=== PATIENT | male | born 1940 | race Caucasian/White ===

== ENCOUNTER → 2016-03-29 | Outpatient (CLI) | payer MEDICARE, BC ==
[~2016-03-29] MED LIST: ASPIR LOW81 MG PO; CITALOPRAM20 MG PO; LEVOTHYROXINE0.05 MG PO; MULTIPLE VITAMI1 CAP PO; TUSSIONEX PENNKI5 ML PO; VIBRAMYCIN100 MG PO; XANAX XR1 MG PO; [UNRECOGNIZED DRUG - CODE] PO
== END ==
LOC: RAD 09:08
DX: M25.511 Pain in right shoulder (principal)

== ENCOUNTER → 2016-04-12 | Outpatient (CLI) | payer MEDICARE, BC | LOC: RAD 08:51 | DX: M25.561 Pain in right knee (principal); M17.11 Unilateral primary osteoarthritis, right knee ==

== ENCOUNTER → 2016-05-24 | Outpatient (CLI) | payer MEDICARE, BC | LOC: LAB 09:48 | DX: R14.0 Abdominal distension (gaseous) (principal); Z11.59 Encounter for screening for other viral diseases; I10 Essential (primary) hypertension; F41.1 Generalized anxiety disorder ==

== ENCOUNTER → 2016-06-02 | Outpatient (CLI) | payer MEDICARE, BC | LOC: CARDREHAB 07:48 | DX: R06.09 Other forms of dyspnea (principal); I10 Essential (primary) hypertension; Z82.49 Family history of ischemic heart disease and other diseases of the circulatory system; Z87.891 Personal history of nicotine dependence; I20.8 Other forms of angina pectoris | CPT/HCPCS: A9500 ==

== ENCOUNTER → 2016-10-04 | Outpatient (CLI) | payer MEDICARE, BC ==
[2013-11-20 13:51] VITALS: BP 150/85
== END ==
LOC: LAB 07:52
DX: E03.9 Hypothyroidism, unspecified (principal); Z12.5 Encounter for screening for malignant neoplasm of prostate; K63.5 Polyp of colon; E78.5 Hyperlipidemia, unspecified; D41.4 Neoplasm of uncertain behavior of bladder

== ENCOUNTER → 2016-10-31 | Outpatient (CLI) | payer MEDICARE, BC ==
[2013-11-20 13:51] VITALS: BP 150/85
== END ==
LOC: LAB 11:10
DX: R19.5 Other fecal abnormalities (principal); Z23 Encounter for immunization

== ENCOUNTER 2017-01-31 09:00 | Outpatient (RCR) | payer MEDICARE, BC ==
[2013-11-20 13:51] VITALS: BP 150/85
== END 2017-01-31 09:30 | disposition home or self-care (01) ==
LOC: PT 09:00
DX: Z47.1 Aftercare following joint replacement surgery (principal); Z96.651 Presence of right artificial knee joint
CPT/HCPCS: G8978-GP; G8979-GP

== ENCOUNTER → 2017-03-23 | Outpatient (CLI) | payer MEDICARE, BC ==
[~2017-03-23] VITALS: Ht 190.5 cm; Wt 103.6 kg
[~2017-03-23] MED LIST changes: +CEFDINIR300 MG PO; +DICLOFENAC SODI PO; +KLONOPIN 1MG1 MG PO; +LEVOTHYROXIN0.075 MG PO; +PREDNISONE20 M1 PO; +XYZAL5 MG PO; +ZANTAC 7575 M1 PO
[2017-03-23 09:46] LABS: HEMATOCRIT 42.9 % (42.0-52.0); HEMOGLOBIN 14.3 g/dL (13.5-18.0); MEAN CELL VOLUME 95 fl (78-100); MEAN CORPUSCULAR HEMOGLOBIN 32 pg (27-31); MEAN CORPUSCULAR HGB CONC 33 g/dL (33-37); MEAN PLATELET VOLUME 10.2 fl (7.4-10.4); PLATELET COUNT 212 K/mm3 (130-400); RED CELL DISTRIBUTION WIDTH 12.9 % (11.5-14.5); WHITE BLOOD COUNT 10.2 K/mm3 (4.8-10.8)
[2017-03-23 09:56] LABS: ALBUMIN 4.5 g/dL (3.5-5.0); BUN/CREATININE RATIO 25.1 (6.0-26.0); CALCIUM 9.4 mg/dL (8.4-10.2); POTASSIUM 4.6 mmol/L (3.6-5.0); TOTAL BILIRUBIN 0.8 mg/dL (0.2-1.3); TOTAL PROTEIN 8.2 g/dL (6.3-8.2)
[2017-03-23 10:13] LABS: PROTHROMBIN TIME 9.9 SECONDS (9.0-12.0)
[2017-03-23 10:14] LABS: URINE APPEARANCE CLEAR; URINE BILIRUBIN NEGATIVE (NEGATIVE); URINE BLOOD NEGATIVE (NEGATIVE); URINE COLOR YELLOW; URINE GLUCOSE NEGATIVE (NEGATIVE); URINE KETONE NEGATIVE (NEGATIVE); URINE LEUKOCYTE ESTERASE NEGATIVE (NEGATIVE); URINE NITRATE NEGATIVE (NEGATIVE); URINE PROTEIN(semi-quant) TRACE mg/dL (NEGATIVE); URINE UROBILINOGEN NORMAL (NORMAL)
[2017-03-23 10:15] LABS: URINE MUCUS PRESENT (NOT PRESENT)
[2017-03-23 10:17] VITALS: BP 147/90
[2017-03-23 10:37] LABS: BAND 3 % (0-10); LYMPHOCYTE 14 % (20-51); MONOCYTE 4 % (3-10); NEUTROPHILS 79 % (42-75)
== END ==
LOC: AMSURD 09:12 → RAD 09:12 → LAB 09:12
PROVIDERS: Nurse Practitioner Family
DX: Z01.812 Encounter for preprocedural laboratory examination (principal); Z01.818 Encounter for other preprocedural examination; M17.11 Unilateral primary osteoarthritis, right knee

== ENCOUNTER → 2017-03-29 | Outpatient (CLI) | payer MEDICARE, BC ==
[2017-03-23 10:17] VITALS: BP 147/90
== END ==
LOC: PT 12:51
DX: Z01.818 Encounter for other preprocedural examination (principal)

== ENCOUNTER 2017-06-04 09:00 | Outpatient (RCR) | payer MEDICARE, BC ==
[2017-03-23 10:17] VITALS: BP 147/90
== END 2017-06-04 09:30 | disposition home or self-care (01) ==
LOC: PT 09:00
DX: Z47.1 Aftercare following joint replacement surgery (principal); Z96.651 Presence of right artificial knee joint
CPT/HCPCS: G8978-GP; G8979-GP

== ENCOUNTER → 2017-10-10 | Outpatient (CLI) | payer MEDICARE, BC ==
[2017-03-23 10:17] VITALS: BP 147/90
[2017-10-10 08:10] LABS: EOS # 0.5 (0.04-0.40); HEMATOCRIT 43.9 % (42.0-52.0); HEMOGLOBIN 14.8 g/dL (13.5-18.0); LYMPH# 2.5 (1.50-4.00); MEAN CELL VOLUME 95 fl (78-100); MEAN CORPUSCULAR HEMOGLOBIN 32 pg (27-31); MEAN CORPUSCULAR HGB CONC 34 g/dL (33-37); MEAN PLATELET VOLUME 10.6 fl (7.4-10.4); MONO # 0.5 (0.20-0.80); NEU # 3.2 (1.40-6.50); PLATELET COUNT 204 K/mm3 (130-400); RED BLOOD COUNT 4.63 M/mm3 (4.20-5.60); WHITE BLOOD COUNT 6.7 K/mm3 (4.8-10.8)
[2017-10-10 08:16] LABS: ALBUMIN 4.4 g/dL (3.5-5.0); BUN/CREATININE RATIO 22.1 (6.0-26.0); CALCIUM 9.1 mg/dL (8.4-10.2); POTASSIUM 4.3 mmol/L (3.6-5.0); TOTAL BILIRUBIN 1.2 mg/dL (0.2-1.3); TOTAL PROTEIN 7.9 g/dL (6.3-8.2)
[2017-10-10 08:31] LABS: EOS % 7.1 % (0.0-4.0)
[2017-10-11 09:35] LABS: URINE APPEARANCE CLEAR; URINE BILIRUBIN NEGATIVE (NEGATIVE); URINE BLOOD NEGATIVE (NEGATIVE); URINE COLOR YELLOW; URINE GLUCOSE NEGATIVE (NEGATIVE); URINE KETONE NEGATIVE (NEGATIVE); URINE LEUKOCYTE ESTERASE NEGATIVE (NEGATIVE); URINE NITRATE NEGATIVE (NEGATIVE); URINE PROTEIN(semi-quant) TRACE mg/dL (NEGATIVE); URINE UROBILINOGEN NORMAL (NORMAL); URINE WBC 0-1 /hpf (0-3)
== END ==
LOC: LAB 07:22
PROVIDERS: Nurse Practitioner Family
DX: Z00.00 Encounter for general adult medical examination without abnormal findings (principal); Z12.5 Encounter for screening for malignant neoplasm of prostate; E78.2 Mixed hyperlipidemia; E03.4 Atrophy of thyroid (acquired); K21.9 Gastro-esophageal reflux disease without esophagitis

== ENCOUNTER → 2018-01-18 | Outpatient (CLI) | payer MEDICARE, BC ==
[2017-03-23 10:17] VITALS: BP 147/90
== END ==
LOC: RAD 10:59
DX: J43.1 Panlobular emphysema (principal); R05 Cough

== ENCOUNTER → 2018-06-05 | Outpatient (CLI) | payer MEDICARE, BC ==
[~2018-06-05] VITALS: Ht 190.5 cm; Wt 104.5 kg
[~2018-06-05] MED LIST changes: +CLARITIN LIQUI-10 MG PO; +LEADER ESSENTIA1 TAB; +MELATONIN1 MG; +MULTIPLE VITAMI1 TA1 PO; +PROAIR HFA0.09 MG/AC IH; +VITAMIN C PURE500 MG PO; +XANAX 1MG1 MG PO
[2018-06-05 13:00] VITALS: BP 123/80
== END ==
LOC: AMSURD 12:16
DX: I49.9 Cardiac arrhythmia, unspecified (principal)

== ENCOUNTER → 2018-10-08 | Outpatient (CLI) | payer MEDICARE, BC ==
[2018-06-05 13:00] VITALS: BP 123/80
[2018-10-08 07:55] LABS: ALBUMIN 4.2 g/dL (3.4-4.8); POTASSIUM 4.2 mmol/L (3.5-5.1)
[2018-10-08 07:56] LABS: CALCIUM 9.2 mg/dL (8.3-10.5)
[2018-10-08 07:59] LABS: TOTAL BILIRUBIN 0.7 mg/dL (0.2-1.2)
== END ==
LOC: LAB 07:33
PROVIDERS: Family Medicine
DX: Z00.00 Encounter for general adult medical examination without abnormal findings (principal); Z12.5 Encounter for screening for malignant neoplasm of prostate; E78.2 Mixed hyperlipidemia; E03.9 Hypothyroidism, unspecified; K21.9 Gastro-esophageal reflux disease without esophagitis

== ENCOUNTER → 2018-10-15 | Outpatient (CLI) | payer MEDICARE, BC ==
[2018-06-05 13:00] VITALS: BP 123/80
[2018-10-15 09:08] LABS: HEMATOCRIT 43.8 % (42.0-52.0); HEMOGLOBIN 14.7 g/dL (13.5-18.0); MEAN CELL VOLUME 95 fl (78-100); MEAN CORPUSCULAR HEMOGLOBIN 32 pg (27-31); MEAN CORPUSCULAR HGB CONC 34 g/dL (33-37); MEAN PLATELET VOLUME 10.4 fl (7.4-10.4); PLATELET COUNT 169 K/mm3 (130-400); RED BLOOD COUNT 4.59 M/mm3 (4.20-5.60); RED CELL DISTRIBUTION WIDTH 12.8 % (11.5-14.5); WHITE BLOOD COUNT 5.6 K/mm3 (4.8-10.8)
[2018-10-15 09:27] LABS: LYMPHOCYTE 32 % (20-51); MONOCYTE 9 % (3-10); NEUTROPHILS 51 % (42-75)
== END ==
LOC: LAB 08:46
PROVIDERS: Family Medicine
DX: Z00.00 Encounter for general adult medical examination without abnormal findings (principal); Z12.5 Encounter for screening for malignant neoplasm of prostate; E03.4 Atrophy of thyroid (acquired); E78.2 Mixed hyperlipidemia; K21.9 Gastro-esophageal reflux disease without esophagitis

== ENCOUNTER → 2018-10-31 | Outpatient (CLI) | payer MEDICARE, BC ==
[2018-06-05 13:00] VITALS: BP 123/80
== END ==
LOC: RAD 06:59
DX: K80.10 Calculus of gallbladder with chronic cholecystitis without obstruction (principal)

== ENCOUNTER → 2019-02-18 | Outpatient (CLI) | payer MEDICARE, BC ==
[2018-12-03 17:24] VITALS: BP 115/60
[~2019-02-18] MED LIST changes: +GLUCOSAMIN-CHO1 EACH PO; +THEOPHYLLINE A300 M1 PO; +TRELEGY ELLIPT1 EACH IH
== END ==
LOC: RAD 02-17 17:08
DX: M16.11 Unilateral primary osteoarthritis, right hip (principal); M25.461 Effusion, right knee; Z96.651 Presence of right artificial knee joint

== ENCOUNTER → 2020-01-29 | Outpatient (CLI) | payer MEDICARE, BC ==
[2018-12-03 17:24] VITALS: BP 115/60
[2020-01-29 07:26] LABS: HEMATOCRIT 42.1 % (42.0-52.0); HEMOGLOBIN 14.1 g/dL (13.5-18.0); MEAN CELL VOLUME 97 fl (78-100); MEAN CORPUSCULAR HEMOGLOBIN 32 pg (27-31); MEAN CORPUSCULAR HGB CONC 34 g/dL (33-37); MEAN PLATELET VOLUME 10.1 fl (7.4-10.4); PLATELET COUNT 170 K/mm3 (130-400); RED BLOOD COUNT 4.36 M/mm3 (4.20-5.60); RED CELL DISTRIBUTION WIDTH 12.6 % (11.5-14.5); WHITE BLOOD COUNT 5.3 K/mm3 (4.8-10.8)
[2020-01-29 07:50] LABS: ALBUMIN 4.2 g/dL (3.4-4.8); POTASSIUM 4.4 mmol/L (3.5-5.1)
[2020-01-29 07:51] LABS: CALCIUM 8.9 mg/dL (8.3-10.5)
[2020-01-29 07:52] LABS: TOTAL PROTEIN 7.1 g/dL (6.2-8.1)
[2020-01-29 07:54] LABS: TOTAL BILIRUBIN 0.9 mg/dL (0.2-1.2)
[2020-01-29 08:17] LABS: LYMPHOCYTE 41 % (20-51); MONOCYTE 8 % (3-10); NEUTROPHILS 42 % (42-75)
== END ==
LOC: LAB 07:07
PROVIDERS: Family Medicine
DX: Z00.00 Encounter for general adult medical examination without abnormal findings (principal); E78.5 Hyperlipidemia, unspecified; E03.4 Atrophy of thyroid (acquired)

== ENCOUNTER → 2020-01-30 | Outpatient (CLI) | payer MEDICARE, BC ==
[2018-12-03 17:24] VITALS: BP 115/60
== END ==
LOC: RAD 09:24
DX: M19.042 Primary osteoarthritis, left hand (principal)

== ENCOUNTER 2020-03-09 11:20 | Emergency (ER) | payer MEDICARE, BC ==
[~2020-03-09 11:20] MED LIST changes: -ASPIR LOW81 MG PO; +ASPIRIN E.C. 8181 MG PO; +CENTRUM MEN'S1 EACH PO; -LEADER ESSENTIA1 TAB; -PROAIR HFA0.09 MG/AC IH; +RT ALBUTEROL CC18 GM IH
[2020-03-09 12:22] LABS: HEMATOCRIT 44.5 % (42.0-52.0); HEMOGLOBIN 15.3 g/dL (13.5-18.0); MEAN CELL VOLUME 94 fl (78-100); MEAN CORPUSCULAR HEMOGLOBIN 32 pg (27-31); MEAN CORPUSCULAR HGB CONC 34 g/dL (33-37); MEAN PLATELET VOLUME 10.6 fl (7.4-10.4); PLATELET COUNT 122 K/mm3 (130-400); RED BLOOD COUNT 4.76 M/mm3 (4.20-5.60); RED CELL DISTRIBUTION WIDTH 12.5 % (11.5-14.5); WHITE BLOOD COUNT 3.7 K/mm3 (4.8-10.8)
[2020-03-09 12:26] LABS: ALBUMIN 4.3 g/dL (3.4-4.8)
[2020-03-09 12:28] LABS: CALCIUM 8.5 mg/dL (8.3-10.5)
[2020-03-09 12:29] LABS: POTASSIUM 4.1 mmol/L (3.5-5.1); SODIUM 135 mmol/L (136-145)
[2020-03-09 12:30] LABS: CARBON DIOXIDE 22 mmol/L (23-31)
[2020-03-09 12:31] LABS: GLUCOSE 121 mg/dL (75-110); TOTAL BILIRUBIN 0.6 mg/dL (0.2-1.2)
[2020-03-09 12:36] LABS: ALT/SGPT 45 U/L (0-55); AST-SGOT 45 U/L (5-34)
[2020-03-09 12:47] LABS: TROPONIN-I < 0.03 ng/mL (<0.030)
[2020-03-09 12:53] LABS: BAND 3 % (0-10); LYMPHOCYTE 27 % (20-51); MONOCYTE 11 % (3-10); NEUTROPHILS 57 % (42-75)
[2020-03-09 12:58] LABS: D-DIMER 1.49 mg/L FEU (0.15-0.50)
[2020-03-09 14:41] LABS: URINE WBC 0 /hpf (0-3)
[2020-03-09] MEDS ORDERED: TRELEGY ELLIPT1 EACH (14:51)
[2020-03-09 14:53] LABS: URINE APPEARANCE CLEAR; URINE BILIRUBIN NEGATIVE (NEGATIVE); URINE BLOOD TRACE (NEGATIVE); URINE COLOR YELLOW; URINE GLUCOSE NEGATIVE (NEGATIVE); URINE KETONE NEGATIVE (NEGATIVE); URINE LEUKOCYTE ESTERASE NEGATIVE (NEGATIVE); URINE NITRATE NEGATIVE (NEGATIVE); URINE PROTEIN(semi-quant) 1+ mg/dL (NEGATIVE); URINE UROBILINOGEN NORMAL (NORMAL)
[2020-03-09] MEDS ORDERED: GLUCOSAMINE-CH1 EA25 PO (14:53)
[2020-03-09] MEDS ORDERED: PROTONIX TR40 M1 PO (16:16)
[2020-03-09] MEDS ORDERED: VITAMIN C1000 M4 PO (16:16)
[2020-03-09] MEDS ORDERED: VITAMIN D325 MC7 PO (16:16)
[2020-03-09] MEDS ORDERED: DECADRON6 M1 PO (16:16)
[2020-03-09] MEDS ORDERED: ZITHROMAX 250M250 MG PO (16:18)
[2020-03-09] MEDS ORDERED: ZINC50 M4 PO (16:18)
[2020-03-09 17:00] VITALS: BP 154/90
[2020-03-09] MEDS ORDERED: PROAIR HFA0.09 MG/AC IH (21:52)
== END 2020-03-09 17:01 | disposition home or self-care (01) ==
LOC: ED 11:20
PROVIDERS: Nurse Practitioner Family
DX: U07.1 COVID-19 (principal); J12.89 Other viral pneumonia; K21.9 Gastro-esophageal reflux disease without esophagitis; J44.9 Chronic obstructive pulmonary disease, unspecified; F41.9 Anxiety disorder, unspecified; I48.91 Unspecified atrial fibrillation; Z87.891 Personal history of nicotine dependence; Z88.0 Allergy status to penicillin; Z88.2 Allergy status to sulfonamides; Z79.51 Long term (current) use of inhaled steroids; Z79.82 Long term (current) use of aspirin
CPT/HCPCS: C9113; J1100; J1885; J7030; Q9967

== ENCOUNTER → 2020-05-10 | Outpatient (CLI) | payer MEDICARE, BC ==
[~2020-05-10] MED LIST changes: +DECADRON6 M1 PO; +GLUCOSAMINE-CH1 EA25 PO; +PROAIR HFA0.09 MG/AC IH; +PROTONIX TR40 M1 PO; +TRELEGY ELLIPT1 EACH; +VITAMIN C1000 M4 PO; +VITAMIN D325 MC7 PO; +ZINC50 M4 PO; +ZITHROMAX 250M250 MG PO
[2020-05-10 10:02] LABS: URINE APPEARANCE CLEAR; URINE BILIRUBIN NEGATIVE (NEGATIVE); URINE BLOOD NEGATIVE (NEGATIVE); URINE COLOR YELLOW; URINE GLUCOSE NEGATIVE (NEGATIVE); URINE KETONE NEGATIVE (NEGATIVE); URINE LEUKOCYTE ESTERASE NEGATIVE (NEGATIVE); URINE NITRATE NEGATIVE (NEGATIVE); URINE PROTEIN(semi-quant) TRACE mg/dL (NEGATIVE); URINE UROBILINOGEN NORMAL (NORMAL)
== END ==
LOC: LAB 09:31
PROVIDERS: Family Medicine
DX: R30.9 Painful micturition, unspecified (principal)

== ENCOUNTER → 2020-05-17 | Day surgery (SDC) | payer MEDICARE, BC | END | disposition home or self-care (01) | LOC: MSO 09:20 | DX: K29.50 Unspecified chronic gastritis without bleeding (principal); K21.9 Gastro-esophageal reflux disease without esophagitis; J43.9 Emphysema, unspecified; F41.9 Anxiety disorder, unspecified; M19.90 Unspecified osteoarthritis, unspecified site; Z79.899 Other long term (current) drug therapy; Z79.82 Long term (current) use of aspirin; Z87.19 Personal history of other diseases of the digestive system; Z87.891 Personal history of nicotine dependence | CPT/HCPCS: 00731; J2704; J7120 ==

== ENCOUNTER → 2020-07-28 | Outpatient (CLI) | payer MEDICARE, BC ==
[2020-07-28 10:18] LABS: HEMATOCRIT 45.4 % (42.0-52.0); HEMOGLOBIN 15.5 g/dL (13.5-18.0); MEAN PLATELET VOLUME 10.2 fl (7.4-10.4); RED BLOOD COUNT 4.76 M/mm3 (4.20-5.60); RED CELL DISTRIBUTION WIDTH 12.1 % (11.5-14.5)
[2020-07-28 10:26] LABS: POTASSIUM 4.8 mmol/L (3.5-5.1)
[2020-07-28 10:27] LABS: ALBUMIN 4.4 g/dL (3.4-4.8)
[2020-07-28 10:28] LABS: CALCIUM 9.4 mg/dL (8.3-10.5)
[2020-07-28 10:29] LABS: TOTAL PROTEIN 7.5 g/dL (6.2-8.1)
[2020-07-28 10:31] LABS: TOTAL BILIRUBIN 0.6 mg/dL (0.2-1.2)
== END ==
LOC: LAB 09:56
PROVIDERS: Family Medicine
DX: E66.9 Obesity, unspecified (principal); E03.4 Atrophy of thyroid (acquired); E78.5 Hyperlipidemia, unspecified

== ENCOUNTER → 2020-08-20 | Outpatient (CLI) | payer MEDICARE, BC | LOC: RAD 15:06 | DX: M19.032 Primary osteoarthritis, left wrist (principal) ==

== ENCOUNTER → 2021-01-31 | Outpatient (CLI) | payer MEDICARE, BC ==
[2021-01-31 07:24] LABS: BASO # 0.05 K/mm3 (0.02-0.10); EOS # 0.47 K/mm3 (0.04-0.40); EOS % 7.5 % (0.0-4.0); HEMATOCRIT 43.5 % (42.0-52.0); HEMOGLOBIN 14.8 g/dL (13.5-18.0); LYMPH# 1.99 K/mm3 (1.50-4.00); MEAN CELL VOLUME 97 fl (78-100); MEAN CORPUSCULAR HEMOGLOBIN 33 pg (27-31); MEAN CORPUSCULAR HGB CONC 34 g/dL (33-37); MEAN PLATELET VOLUME 10.1 fl (7.4-10.4); MONO # 0.44 K/mm3 (0.20-0.80); NEU # 3.28 K/mm3 (1.40-6.50); PLATELET COUNT 172 K/mm3 (130-400); RED CELL DISTRIBUTION WIDTH 12.5 % (11.5-14.5); WHITE BLOOD COUNT 6.2 K/mm3 (4.8-10.8)
[2021-01-31 07:31] LABS: ALBUMIN 4.3 g/dL (3.4-4.8); POTASSIUM 4.3 mmol/L (3.5-5.1)
[2021-01-31 07:32] LABS: CALCIUM 9.3 mg/dL (8.3-10.5)
[2021-01-31 07:34] LABS: TOTAL PROTEIN 7.1 g/dL (6.2-8.1)
[2021-01-31 07:36] LABS: TOTAL BILIRUBIN 0.6 mg/dL (0.2-1.2)
== END ==
LOC: LAB 07:02
PROVIDERS: Family Medicine
DX: Z00.01 Encounter for general adult medical examination with abnormal findings (principal); J30.9 Allergic rhinitis, unspecified; E78.5 Hyperlipidemia, unspecified; E03.4 Atrophy of thyroid (acquired)

== ENCOUNTER → 2021-06-23 | Outpatient (CLI) | payer MEDICARE, BC ==
[2021-06-23 16:45] LABS: BASO # 0.04 K/mm3 (0.02-0.10); EOS # 0.38 K/mm3 (0.04-0.40); EOS % 6.4 % (0.0-4.0); HEMOGLOBIN 14.3 g/dL (13.5-18.0); LYMPH# 1.69 K/mm3 (1.50-4.00); MEAN CELL VOLUME 96 fl (78-100); MEAN CORPUSCULAR HEMOGLOBIN 33 pg (27-31); MEAN CORPUSCULAR HGB CONC 34 g/dL (33-37); MEAN PLATELET VOLUME 10.3 fl (7.4-10.4); NEU # 3.46 K/mm3 (1.40-6.50); PLATELET COUNT 166 K/mm3 (130-400); RED BLOOD COUNT 4.36 M/mm3 (4.20-5.60); RED CELL DISTRIBUTION WIDTH 12.7 % (11.5-14.5)
[2021-06-23 16:55] LABS: POTASSIUM 4.5 mmol/L (3.5-5.1); SODIUM 140 mmol/L (136-145)
[2021-06-23 16:56] LABS: CALCIUM 9.5 mg/dL (8.3-10.5)
[2021-06-23 16:57] LABS: GLUCOSE 99 mg/dL (75-110)
[2021-06-23 16:58] LABS: CARBON DIOXIDE 22 mmol/L (23-31)
[2021-06-23 17:11] LABS: TROPONIN-I < 0.030 ng/mL (<0.030)
[2021-06-23 17:23] LABS: D-DIMER 1.4 mg/L FEU (0.15-0.50)
== END ==
LOC: LAB 16:12
PROVIDERS: Internal Medicine Interventional Cardiology
DX: R60.0 Localized edema (principal); R07.89 Other chest pain

== ENCOUNTER → 2021-06-28 | Outpatient (CLI) | payer MEDICARE, BC | LOC: RAD 10:02 | DX: R06.02 Shortness of breath (principal) | CPT/HCPCS: Q9967 ==

== ENCOUNTER → 2021-10-18 | Outpatient (CLI) | payer MEDICARE, BC ==
[2021-10-18 18:18] LABS: BASO # 0.03 K/mm3 (0.02-0.10); EOS # 0.52 K/mm3 (0.04-0.40); EOS % 7.3 % (0.0-4.0); HEMATOCRIT 43.4 % (42.0-52.0); HEMOGLOBIN 14.6 g/dL (13.5-18.0); MEAN CELL VOLUME 97 fl (78-100); MEAN CORPUSCULAR HEMOGLOBIN 33 pg (27-31); MEAN CORPUSCULAR HGB CONC 34 g/dL (33-37); MEAN PLATELET VOLUME 10.3 fl (7.4-10.4); MONO # 0.55 K/mm3 (0.20-0.80); PLATELET COUNT 171 K/mm3 (130-400); RED BLOOD COUNT 4.46 M/mm3 (4.20-5.60); RED CELL DISTRIBUTION WIDTH 12.4 % (11.5-14.5); WHITE BLOOD COUNT 7.1 K/mm3 (4.8-10.8)
[2021-10-18 18:30] LABS: ALBUMIN 4.5 g/dL (3.4-4.8); POTASSIUM 4.3 mmol/L (3.5-5.1)
[2021-10-18 18:31] LABS: CALCIUM 9.5 mg/dL (8.3-10.5)
[2021-10-18 18:32] LABS: TOTAL PROTEIN 7.6 g/dL (6.2-8.1)
[2021-10-18 18:34] LABS: TOTAL BILIRUBIN 0.5 mg/dL (0.2-1.2)
[2021-10-18 18:37] LABS: D-DIMER 1.52 mg/L FEU (0.15-0.50)
== END ==
LOC: LAB 18:03
PROVIDERS: Nurse Practitioner Family
DX: R60.0 Localized edema (principal)

== ENCOUNTER → 2021-10-19 | Outpatient (CLI) | payer MEDICARE, BC ==
[~2021-10-19] VITALS: Ht 190.5 cm; Wt 100.0 kg
[2021-10-19 08:34] VITALS: BP 157/79
== END ==
LOC: AMSURD 07:36 → VAS 07:59 → AMSURD 07:59
DX: M79.89 Other specified soft tissue disorders (principal); R79.1 Abnormal coagulation profile
CPT/HCPCS: J1650

== ENCOUNTER → 2022-02-16 | Outpatient (CLI) | payer MEDICARE, BC | LOC: RAD 11:21 | DX: M19.071 Primary osteoarthritis, right ankle and foot (principal); S99.921A Unspecified injury of right foot, initial encounter; X58.XXXA Exposure to other specified factors, initial encounter ==

== ENCOUNTER → 2022-05-03 | Outpatient (CLI) | payer MEDICARE, BC | LOC: RAD 09:00 → VAS 09:00 | DX: I65.29 Occlusion and stenosis of unspecified carotid artery (principal) ==

== ENCOUNTER → 2023-10-31 | Outpatient (CLI) | payer MEDICARE, BC ==
[2023-10-31 10:13] LABS: ALBUMIN 4.2 g/dL (3.4-4.8)
[2023-10-31 10:16] LABS: TOTAL PROTEIN 6.6 g/dL (6.2-8.1)
[2023-10-31 10:18] LABS: TOTAL BILIRUBIN 0.6 mg/dL (0.2-1.2)
== END ==
LOC: LAB 09:51
PROVIDERS: Family Medicine
DX: M25.561 Pain in right knee (principal); N18.31 Chronic kidney disease, stage 3a; Z96.651 Presence of right artificial knee joint

== ENCOUNTER → 2024-01-04 | Outpatient (CLI) | payer MEDICARE, BC | LOC: LAB 07:55 | DX: E78.2 Mixed hyperlipidemia (principal); E03.4 Atrophy of thyroid (acquired) ==

== ENCOUNTER → 2024-04-30 | Outpatient (CLI) | payer MEDICARE, BC ==
[2024-04-30 09:12] LABS: HEMATOCRIT 46.7 % (42.0-52.0); HEMOGLOBIN 15.6 g/dL (13.5-18.0); RED BLOOD COUNT 4.79 M/mm3 (4.20-5.60); RED CELL DISTRIBUTION WIDTH 12.1 % (11.5-14.5); WHITE BLOOD COUNT 8.3 K/mm3 (4.8-10.8)
[2024-04-30 09:19] LABS: CALCIUM 9.8 mg/dL (8.3-10.5)
== END ==
LOC: LAB 09:00
PROVIDERS: Family Medicine
DX: E03.4 Atrophy of thyroid (acquired) (principal); N18.31 Chronic kidney disease, stage 3a

== ENCOUNTER → 2024-05-06 | Outpatient (CLI) | payer MEDICARE, BC | LOC: LAB 08:13 | DX: E03.4 Atrophy of thyroid (acquired) (principal); N18.31 Chronic kidney disease, stage 3a ==

== ENCOUNTER → 2024-06-13 | Outpatient (CLI) | payer MEDICARE, BC ==
[2024-06-13 08:26] LABS: BASO # 0.03 K/mm3 (0.02-0.10); EOS # 0.49 K/mm3 (0.04-0.40); EOS % 7.7 % (0.0-4.0); HEMATOCRIT 44.5 % (42.0-52.0); HEMOGLOBIN 14.5 g/dL (13.5-18.0); LYMPH# 1.85 K/mm3 (1.50-4.00); MEAN CELL VOLUME 100 fl (78-100); MEAN CORPUSCULAR HEMOGLOBIN 33 pg (27-31); MEAN CORPUSCULAR HGB CONC 33 g/dL (33-37); MEAN PLATELET VOLUME 10.1 fl (7.4-10.4); MONO # 0.48 K/mm3 (0.20-0.80); NEU # 3.48 K/mm3 (1.40-6.50); PLATELET COUNT 174 K/mm3 (130-400); RED BLOOD COUNT 4.46 M/mm3 (4.20-5.60); RED CELL DISTRIBUTION WIDTH 12.6 % (11.5-14.5); WHITE BLOOD COUNT 6.3 K/mm3 (4.8-10.8)
[2024-06-13 08:33] LABS: CALCIUM 8.8 mg/dL (8.3-10.5)
== END ==
LOC: LAB 08:10
PROVIDERS: Internal Medicine Interventional Cardiology
DX: I50.20 Unspecified systolic (congestive) heart failure (principal); I48.19 Other persistent atrial fibrillation

== ENCOUNTER → 2024-06-26 | Outpatient (CLI) | payer MEDICARE, BC | LOC: RAD 11:32 | DX: Z45.2 Encounter for adjustment and management of vascular access device (principal); I49.5 Sick sinus syndrome; I50.22 Chronic systolic (congestive) heart failure; Z95.0 Presence of cardiac pacemaker ==